=== PATIENT | male | born 1995 | race Caucasian/White ===

== ENCOUNTER 2016-06-04 06:55 | Emergency (ER) | payer OTHER ==
[2016-06-04 07:03] VITALS: TEMP 98.1
--- NOTE | 2016-06-04 07:11 | EDPHY ---
H & P Stated Complaint: cold symptoms x1 week- dx w/ flu last week, coughing up blood HPI/ROS: CHIEF COMPLAINT: Cough HISTORY OF PRESENT ILLNESS: The patient is a 20 year old male with history of asthma, who presents to the emergency department with ongoing productive cough. The patient was diagnosed with the flu last week and was started on Prednisone. At that time he had fever, chills, and aches, but states those symptoms have resolved. He continues to have an ongoing productive cough with green sputum. For the past 3 days he states he has been coughing up blood. He last used his albuterol inhaler yesterday. Patient additionally notes some diarrhea. He denies fever, chills, chest pain, shortness of breath, palpitations, vomiting, urinary complaints, headache, lightheadedness. REVIEW OF SYSTEMS: Aside from elements discussed in the HPI, a comprehensive 10-point review of systems was reviewed and is negative. PAST MEDICAL HISTORY: Asthma. SOCIAL HISTORY: Quit smoking 3 weeks ago, marijuana use, occasional alcohol. VITAL SIGNS: Reviewed by me GENERAL: Well-developed, well-nourished, no respiratory distress but frequent coughing. HEENT: Atraumatic. Eyes: No icterus, no injection. Mouth: moist mucous membranes. Slightly erythematous. Neck: supple with no adenopathy. LUNGS: Diffuse wheezes, faint crackles at the left base. CARDIAC: Regular rate and rhythm, no rubs, murmurs or gallops. ABDOMEN: Soft, nontender, nondistended, bowel sounds normal. BACK: No CVA tenderness. EXTREMITIES: No trauma. No edema. Range of motion is normal throughout. NEURO: Alert and oriented, grossly nonfocal. SKIN: Warm and dry, no rash. PSYCHIATRIC: Normal mentation, no agitation. Portions of this note were transcribed by a medical receptionist medical assistant. I personally performed a history, physical exam, medical decision making, and confirmed accuracy of information the transcribed note. Source: Patient - Personal History Current Tetanus/Diphtheria Vaccine: Yes Current Tetanus Diphtheria and Acellular Pertussis (TDAP): Yes - Medical/Surgical History Hx Asthma: No Hx Chronic Respiratory Disease: No Hx Diabetes: No Hx Cardiac Disease: No Hx Renal Disease: No Hx Cirrhosis: No Hx Alcoholism: No Hx HIV/AIDS: No Hx Splenectomy or Spleen Trauma: No Other PMH: Asthma - Social History Smoking Status: Current some day smoker Constitutional: Initial Vital Signs Temperature (C) 36.7 C 06/04/16 07:00 Heart Rate 69 06/04/16 07:00 Respiratory Rate 18 06/04/16 07:00 Blood Pressure 118/92 H 06/04/16 07:00 O2 Sat (%) 97 06/04/16 07:00 O2 Delivery Mode Room Air Allergies/Adverse Reactions: No Known Allergies Allergy (Unverified 06/04/16 07:00) Home Medications: Medication Instructions Recorded AZITHROMYCIN [Z-PACK] 250 - 500 mg PO DAILY #6 tab 06/04/16 Albuterol [Proventil Inhaler HFA 1 - 2 puffs IH Q4H #1 mdi 06/04/16 (*)] Allergy Medicine 06/04/16 Benzonatate [Tessalon Pearles (RX)] 100 mg PO BID #20 cap 06/04/16 predniSONE 40 mg PO DAILY #6 tab 06/04/16 Medical Decision Making - Diagnostics Imaging: X-ray: chest was obtained. I viewed the images myself on the PACS system. My interpretation of the images is: No pneumonia. Consistent with bronchitis. The radiologist interpretation is mild bronchitis. I discussed the x-ray findings with the patient. ED Course/Re-evaluation: The patient received a DuoNeb and Albuterol neb. Plan for chest x-ray to rule out pneumonia. 8:08 a.m.: I reexamined the patient, his lungs sound more clear. I discussed chest x-ray results. Plan to give patient first dose of 60mg Prednisone in the ED. He will be sent home with Azithromycin and 3 more days of Prednisone. Patient has an inhaler and has been instructed to use the inhaler 3-4 times per day. Please see the discharge instructions. Differential Diagnosis: Differential diagnosis for the patient's cough was considered including but not limited to viral versus bacterial bronchitis, asthma, COPD, pulmonary emboli, upper respiratory infection, lower respiratory infection, and bronchospasm. - Data Points Medications Given: Discontinued Medications Albuterol (Proventil Neb) 3 ml IH EDNOW ONE Stop: 06/04/16 07:28 Last Admin: 06/04/16 07:31 Dose: 3 ml Albuterol/Ipratropium (Duoneb) 3 ml IH EDNOW ONE Stop: 06/04/16 07:28 Last Admin: 06/04/16 07:44 Dose: 3 ml Prednisone (Prednisone) 60 mg PO EDNOW ONE Stop: 06/04/16 08:13 Last Admin: 06/04/16 08:15 Dose: 60 mg Departure - Departure Disposition: Home, Routine, Self-Care Clinical Impression: Cough, Hemoptysis, Bronchitis Condition: Good Instructions: Acute Bronchitis (ED), Hemoptysis (ED) Additional Instructions: You have been prescribed a higher dose of prednisone, please start the Prednisone tomorrow and continue as directed. Take full course of Azithromycin. Use Tessalon Perles as directed to help reduce cough. Use your Albuterol inhaler 3-4 times per day. You may also consider trying Afrin nasal spray to help with nighttime congestion and [id number] antihistamines to help with daytime runny nose, sneezing. If your symptoms do not improve after 5 days, please followup with the referred primary care physician or return to the emergency department. Referrals: Brian Andrew MD [Medical Doctor] - As per Instructions Prescriptions: Albuterol [Proventil Inhaler HFA (*)] 1 - 2 puffs IH Q4H #1 mdi AZITHROMYCIN [Z-PACK] 250 - 500 mg PO DAILY #6 tab Benzonatate [Tessalon Pearles (RX)] 100 mg PO BID #20 cap predniSONE 40 mg PO DAILY #6 tab Report Scribed for: Casi uGnn Report Scribed by: Azalea Braun Date of Report: 06/04/16 Time of Report: 07:26
[2016-06-04] MEDS ORDERED: ALBUTEROL 3 ML DEYVIAL IH ONE (07:27)
[2016-06-04] MEDS ORDERED: IPRATROPIUM/ALBUTEROL 3 ML DEYVIAL IH ONE (07:27)
[2016-06-04] MEDS ORDERED: predniSONE 20 MG TAB PO ONE (08:12)
[2016-06-04 08:27] VITALS: BP 154/89; PULSE 74; RESP 16; O2SAT 98
== END 2016-06-04 08:27 | disposition home or self-care (01) ==
DX: J20.9 Acute bronchitis, unspecified (principal); R04.2 Hemoptysis; J45.909 Unspecified asthma, uncomplicated; F17.200 Nicotine dependence, unspecified, uncomplicated

== ENCOUNTER 2018-06-05 06:19 | Emergency (ER) | payer OTHER ==
[2018-06-05] MEDS ORDERED: chlordiazePOXIDE 25 MG CAP PO ONE (06:46)
--- NOTE | 2018-06-05 06:50 | EDPHY ---
H & P Stated Complaint: XANAX, ETOH AND MARIJUANALAST NIGHT FEELING HIGH Time Seen by Provider: 06/05/18 06:39 HPI/ROS: HPI The patient presents with palpitations, dry mouth, feelings of anxiety since about 3:30 a.m. This morning. Last night between 11:00 p.m. And 2:00 a.m. As he had about 6-9 alcoholic drinks, as he used a friend's Xanax at about 11:00 p.m., he used marijuana at about 2:00 a.m.. He fell asleep at 2:00 a.m. And then awoke at 3:30 a.m. Feeling anxious and generally unwell. He was able to drink fluids without any vomiting. He was unable to fall back asleep so comes into the emergency department. He does not have any chest pain, shortness of breath. He denies any injuries or loss of consciousness. He is an every other day drinker and has had alcohol withdrawals before. This feels somewhat similar. REVIEW OF SYSTEMS 10 systems were reviewed and negative with the exception of the elements mentioned in the history of present illness. PMHx: Healthy Soc Hx: College student, alcohol and drug use PHYSICAL General Appearance: Alert, anxious appearing Eyes: Pupils equal and round no pallor or injection ENT, Mouth: Mucous membranes dry Respiratory: There are no retractions, lungs are clear to auscultation Cardiovascular: Slightly tachycardic with regular rhythm Gastrointestinal: Abdomen is soft and non-tender, no masses, bowel sounds normal Neurological: A&O, moves all extremities, no tremor Skin: Warm and dry, no rashes Musculoskeletal: Neck is supple non tender Extremities: symmetrical, full range of motion Psychiatric: Patient is oriented X 3, there is no agitation Source: Patient Exam Limitations: No limitations - Personal History Current Tetanus/Diphtheria Vaccine: Yes Current Tetanus Diphtheria and Acellular Pertussis (TDAP): Yes - Medical/Surgical History Hx Asthma: Yes Hx Chronic Respiratory Disease: No Hx Diabetes: No Hx Cardiac Disease: No Hx Renal Disease: No Hx Cirrhosis: No Hx Alcoholism: No Hx HIV/AIDS: No Hx Splenectomy or Spleen Trauma: No Other PMH: Asthma - Social History Smoking Status: Current some day smoker Constitutional: Initial Vital Signs Temperature (C) 37.0 C 06/05/18 06:21 Heart Rate 118 H 06/05/18 06:21 Respiratory Rate 20 06/05/18 06:21 Blood Pressure 164/97 H 06/05/18 06:21 O2 Sat (%) 95 06/05/18 06:21 O2 Delivery Mode Room Air Allergies/Adverse Reactions: No Known Allergies Allergy (Unverified 06/05/18 06:24) Home Medications: Medication Instructions Recorded Albuterol [Proventil Inhaler HFA 1 - 2 puffs IH Q4H #1 mdi 06/04/16 (*)] Allergy Medicine 06/04/16 Medical Decision Making Differential Diagnosis: This is a 22-year-old male who presents with anxiety, palpitations, dry mouth for the last several hours. Yesterday he used alcohol, Xanax, marijuana. He is concerned that his marijuana was laced with another substance. He appears to be in mild alcohol withdrawal. He says he has experienced this before. As I plan to treat him here with a dose of Librium. I will check a urine toxicology screen per his request. Departure - Departure Disposition: Home, Routine, Self-Care Clinical Impression: Palpitations, Anxiety, Polysubstance abuse Condition: Good Instructions: Polysubstance Abuse (ED) Additional Instructions: Please make sure to drink plenty of fluids and get rest. Please avoid using alcohol or any drugs. Return to the emergency department if your worse in any way. Referrals: DEL Desouza,. [Clinic] - As per Instructions
[2018-06-05 06:53] VITALS: BP 143/96
== END 2018-06-05 08:05 | disposition home or self-care (01) ==
DX: R00.2 Palpitations (principal); F41.9 Anxiety disorder, unspecified; F19.10 Other psychoactive substance abuse, uncomplicated; R68.2 Dry mouth, unspecified
CPT/HCPCS: 80305